=== PATIENT | female | born 1980 | race Caucasian/White ===

== ENCOUNTER 2019-08-29 12:12 | Emergency (ER) | payer SELFPAY ==
[2019-08-29 12:21] VITALS: BP 133/82
[2019-08-29] MEDS ORDERED: HYDROCODONE/ACETAMINOPHEN 5-325 MG TABLET PO ONE (12:31)
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
--- NOTE | 2019-08-29 13:11 | RADIOLOGY REPORT (SQ) ---
EXAM DESCRIPTION: FOREARM RIGHT IMAGES COMPLETED DATE/TIME: 08/29/2019 11:51 am REASON FOR STUDY: Fractured in [place] . COMPARISON: None. NUMBER OF VIEWS: Two views. TECHNIQUE: Two radiographic images acquired of the right forearm, including elbow and wrist in at le ast one projection. LIMITATIONS: Overlying casting material obscures detail. FINDINGS: MINERALIZATION: Normal. BONES: There is an acute oblique fracture of the midshaft ulna with mild posterior displacement of th e distal fracture fragment approximately 3 mm. The radius appears intact. SOFT TISSUES: No obvious swelling or foreign body. OTHER: No other significant finding. IMPRESSION: Acute oblique fracture midshaft ulna with mild posterior displacement of the distal frac ture fragment. TECHNICAL DOCUMENTATION: JOB ID: [id number] 2010 [employer]- All Rights Reserved Reading location - IP/workstation name: [email or web address]
== END 2019-08-29 15:36 | disposition left against medical advice (07) ==
LOC: ER 12:12
DX: S52.231A Displaced oblique fracture of shaft of right ulna, initial encounter for closed fracture (principal); M79.601 Pain in right arm; Y04.8XXA Assault by other bodily force, initial encounter; F17.210 Nicotine dependence, cigarettes, uncomplicated
CPT/HCPCS: 99281; 99406